=== PATIENT | female | born 1950 | race Caucasian/White ===

== ENCOUNTER → 2017-08-14 | Outpatient (CLI) | payer MEDICARE ==
--- NOTE | 2017-08-14 10:47 | MM ---
Reason for exam: follow-up at short interval from prior study. Last mammogram was performed 7 months ago. History: Patient is postmenopausal. Stereotactic core biopsy of the left breast, June 03, 2004. Core biopsy of the left breast. Benign excisional biopsy of the left breast. Took hormonal contraceptives for 8 years beginning at age 23. Took estrogen for 9 years beginning at age 42. Took progesterone for 9 years beginning at age 42. Physical Findings: Nurse did not find any significant physical abnormalities on exam. MG Diagnostic Mammo RT w CAD CC and MLO view(s) were taken of the right breast. Prior study comparison: January 25, 2017, bilateral MG 3d screening mammo w/cad. July 16, 2015, bilateral MG screening mammo w CAD. The breast tissue is heterogeneously dense. This may lower the sensitivity of mammography. There is no discrete abnormality. No significant new findings when compared with previous films. These results were verbally communicated with the patient and result sheet given to the patient on 08/14/17. ASSESSMENT: Benign, BI-RAD 2 RECOMMENDATION: Return to routine screening mammogram schedule for both breasts. Back on schedule.
== END | disposition home or self-care (01) ==
LOC: RADMAMWWP 10:12
PROVIDERS: ATTEND Family Medicine
DX: N63.10 Unspecified lump in the right breast, unspecified quadrant (principal)
CPT/HCPCS: 77065

== ENCOUNTER → 2018-03-19 | Outpatient (CLI) | payer MEDICARE ==
--- NOTE | 2018-03-22 08:51 | MM ---
Reason for exam: screening (asymptomatic). Last mammogram was performed 7 months ago. History: Patient is postmenopausal. Stereotactic core biopsy of the left breast, June 03, 2004. Core biopsy of the left breast. Benign excisional biopsy of the left breast. Took hormonal contraceptives for 8 years beginning at age 23. Took estrogen for 9 years beginning at age 42. Took progesterone for 9 years beginning at age 42. Physical Findings: A clinical breast exam by your physician is recommended on an annual basis and results should be correlated with mammographic findings. MG 3D Screening Mammo W/Cad Bilateral CC and MLO view(s) were taken. Prior study comparison: August 14, 2017, right breast MG diagnostic mammo RT w CAD. January 25, 2017, bilateral MG 3d screening mammo w/cad. The breast tissue is heterogeneously dense. This may lower the sensitivity of mammography. There is chronic nodularity in the left inferior left breast. No significant changes when compared with prior studies. ASSESSMENT: Negative, BI-RAD 1 RECOMMENDATION: Routine screening mammogram of both breasts in 1 year.
== END | disposition home or self-care (01) ==
LOC: RADMAMWWP 13:07
PROVIDERS: ATTEND Family Medicine
DX: Z12.31 Encounter for screening mammogram for malignant neoplasm of breast (principal)
CPT/HCPCS: 77063; 77067

== ENCOUNTER 2018-04-26 09:11 | Day surgery (SDC) | payer MEDICARE ==
[2018-04-25 08:54] VITALS: BMI 33.0
[~2018-04-26 09:11] MED LIST: LACTATED RINGERS 1,000 ML IV SCH
[2018-04-26 09:57] VITALS: RESP 16; TEMP 97.7
[2018-04-26] MEDS ORDERED: PROPOFOL 10 MG/ML 20 ML VIAL IV ONE (10:35)
--- NOTE | 2018-04-26 11:11 | P.PCN ---
Date of Procedure: 04/26/18 Procedure(s) Performed: BRIEF HISTORY: Patient is a 60-year-old pleasant female, scheduled for an elective colonoscopy as a part of evaluation of prior history of colon polyps. Her last colonoscopy was 5 years ago. PROCEDURE PERFORMED: Colonoscopy. PREOPERATIVE DIAGNOSIS: History Of colon polyps. IV sedation per Anesthesia. PROCEDURE: After informed consent was obtained, the patient, was brought into the endoscopy unit. IV sedation was administered by Anesthesia under continuous monitoring. Digital rectal examination was normal. Initially the Olympus CF-160 flexible video colonoscope was then inserted in the rectum, gradually advanced into the cecum without any difficulty. Careful examination was performed as the scope was gradually being withdrawn. Ileocecal valve and the appendiceal orifice were visualized and appeared normal. Prep was fair. Thorough Irrigation was performed using irrigation system.. Mucosa of the cecum, ascending colon, transverse colon, descending colon, sigmoid colon, and rectum appeared normal. Retroflexion was performed in the rectum and no lesions were seen. The patient tolerated the procedure well. IMPRESSION: Normal-appearing colon from rectum to cecum with no evidence of colitis or colorectal neoplasia. RECOMMENDATIONS: Findings of this examination were discussed with the patient as well as a family. She was advised to have a repeat surveillance colonoscopy in 5 years because of the prior history of colon polyps..
[2018-04-26 11:37] VITALS: BP 129/84; PULSE 66
== END 2018-04-26 11:45 | disposition home or self-care (01) ==
LOC: ORWHC2ENDO 09:11
PROVIDERS: ATTEND Internal Medicine Gastroenterology
DX: Z86.010 Personal history of colon polyps (principal); E78.5 Hyperlipidemia, unspecified; Z79.899 Other long term (current) drug therapy
CPT/HCPCS: 45378; J2704

== ENCOUNTER → 2019-05-01 | Outpatient (CLI) | payer MEDICARE ==
--- NOTE | 2019-05-02 13:57 | MM ---
Reason for exam: screening (asymptomatic). Last mammogram was performed 1 year and 1 month ago. History: Patient is postmenopausal. Stereotactic core biopsy of the left breast, June 03, 2004. Core biopsy of the left breast. Benign excisional biopsy of the left breast. Took hormonal contraceptives for 8 years beginning at age 23. Took estrogen for 9 years beginning at age 42. Took progesterone for 9 years beginning at age 42. Physical Findings: A clinical breast exam by your physician is recommended on an annual basis and results should be correlated with mammographic findings. MG 3D Screening Mammo W/Cad Bilateral CC and MLO view(s) were taken. Prior study comparison: March 19, 2018, bilateral MG 3d screening mammo w/cad. August 14, 2017, right breast MG diagnostic mammo RT w CAD. The breast tissue is heterogeneously dense. This may lower the sensitivity of mammography. Finding: There is a 16 mm high density, circumscribed mass with architectural distortion located 6 cm from the nipple in the lower inner quadrant of the left breast consistent with post operative changes. 5mm fat density 2o'clock left breast consistent with lipoma. No significant changes in finding since March 19, 2018 and August 14, 2017. ASSESSMENT: Benign, BI-RAD 2 RECOMMENDATION: Routine screening mammogram of both breasts in 1 year.
== END | disposition home or self-care (01) ==
LOC: RADMAMWWP 16:35
PROVIDERS: ATTEND Family Medicine
DX: Z12.31 Encounter for screening mammogram for malignant neoplasm of breast (principal)
CPT/HCPCS: 77063; 77067

== ENCOUNTER → 2019-05-06 | Outpatient (CLI) | payer MEDICARE ==
--- NOTE | 2019-05-07 07:38 | BD ---
EXAMINATION TYPE: Axial Bone Density DATE OF EXAM: 05/06/2019 COMPARISON: NONE CLINICAL HISTORY: OSTEOPENIA Height: 5 FT 4 3/4 IN Weight: 210 FRAX RISK QUESTIONS: Alcohol (3 or more units per day): NO Family History (Parent hip fracture): NO Glucocorticoids (More than 3mos): NO (Ex: prednisone, prednisolone, methylprednisolone, dexamethasone, and hydrocortisone). History of Fracture in Adulthood: YES Secondary Osteoporosis: 1. Type 1 Diabetes: NO 2. Hyperthyroidism: NO 3. Menopause before 45: YES 4. Malnutrition: NO 5. Chronic liver disease: NO Rheumatoid Arthritis: NO Current Tobacco Use: NO RISK FACTORS HISTORY OF: Active: YES Postmenopausal woman: AGE 39-40 Take estrogen and/or progesterone medications: TOOK HRT APPROX 5 YEARS RIGHT AFTER MENOPAUSE MEDICATIONS: Additional Medications: CHOLESTEROL MEDS Additional History: EXAM MEASUREMENTS: Bone mineral densitometry was performed using the [employer] System. Bone mineral density as measured about the Lumbar spine is: ----- L1-L4(G/cm2): 1.078 T Score Values are as follows: ----- L2: -0.8 ----- L3: -0.7 ----- L4: -0.6 ----- L1-L4: -0.8 PRV DONE IN DRS OFFICE Bone mineral density about the R hip (g/cm2): 0.797 Bone mineral density about the L hip (g/cm2): 0.783 T Score values are as follows: -----R Neck: -1.7 -----L Neck: -1.8 -----R Total: -1.5 -----L Total: -1.3 PREV DONE IN DRS OFFICE IMPRESSION: Osteopenia (T Score between -2.5 and -1). There is slightly increased risk of fracture and the patient may be considered for treatment. Re-Screen 2-5 years. NOTE: T-SCORE=SD OF THE YOUNG ADULT MEAN.
== END | disposition home or self-care (01) ==
LOC: RADBDWWP 15:32
PROVIDERS: ATTEND Family Medicine
DX: M85.88 Other specified disorders of bone density and structure, other site (principal)
CPT/HCPCS: 77080

== ENCOUNTER → 2020-06-29 | Outpatient (CLI) | payer MEDICARE ==
--- NOTE | 2020-06-30 13:43 | MM ---
Reason for exam: screening (asymptomatic). Last mammogram was performed 1 year and 2 months ago. History: Patient is postmenopausal. Stereotactic core biopsy of the left breast, June 03, 2004. Core biopsy of the left breast. Benign excisional biopsy of the left breast. Took hormonal contraceptives for 8 years beginning at age 23. Took estrogen for 9 years beginning at age 42. Took progesterone for 9 years beginning at age 42. Physical Findings: A clinical breast exam by your physician is recommended on an annual basis and results should be correlated with mammographic findings. MG 3D Screening Mammo W/Cad Bilateral CC and MLO view(s) were taken. Prior study comparison: May 01, 2019, bilateral MG 3d screening mammo w/cad. March 19, 2018, bilateral MG 3d screening mammo w/cad. The breast tissue is heterogeneously dense. This may lower the sensitivity of mammography. No significant changes when compared with prior studies. ASSESSMENT: Benign, BI-RAD 2 RECOMMENDATION: Routine screening mammogram of both breasts in 1 year.
== END | disposition home or self-care (01) ==
LOC: RADMAMWWP 09:38
PROVIDERS: ATTEND Family Medicine
DX: Z12.31 Encounter for screening mammogram for malignant neoplasm of breast (principal); Z78.0 Asymptomatic menopausal state
CPT/HCPCS: 77063; 77067

== ENCOUNTER → 2021-09-07 | Outpatient (CLI) | payer MEDICARE ==
--- NOTE | 2021-09-07 12:14 | BD ---
EXAMINATION TYPE: Axial Bone Density DATE OF EXAM: 09/07/2021 COMPARISON: NONE CLINICAL HISTORY: 71 years year old Female. ICD-10 CODE: M8580 DISORDER OF BONE Height: 5 FT 5 IN Weight: 217 FRAX RISK QUESTIONS: Alcohol (3 or more units per day): NO Family History (Parent hip fracture): NO Glucocorticoids (More than 3mos): NO (Ex: prednisone, prednisolone, methylprednisolone, dexamethasone, and hydrocortisone). History of Fracture in Adulthood: YES Secondary Osteoporosis: 1. Type 1 Diabetes: NO 2. Hyperthyroidism: NO 3. Menopause before 45: YES 4. Malnutrition: NO 5. Chronic liver disease: NO Rheumatoid Arthritis: NO Current Tobacco Use: NO RISK FACTORS HISTORY OF: Surgery to Spine/Hip(right/left)/Wrist (right/left): NO Family History of Osteoporosis: NO Active: YES Diet low in dairy products/other sources of calcium: NO Postmenopausal woman: YES Take estrogen and/or progesterone medications: NO Lost more than 2 inches in height since high school: NO Frequent falls: NO Poor Health: GOOD Hyperparathyroidism: NO Adrenal Insufficiency: NO MEDICATIONS: Additional Medications: CHOLESTEROL MEDS, BLOOD PRESSURE MEDS Additional History: EXAM MEASUREMENTS: Bone mineral densitometry was performed using the [employer] System. Bone mineral density as measured about the Lumbar spine is: ----- L1-L4(G/cm2): 1.072 T Score Values are as follows: ----- L1: -1.7 ----- L2: -1.6 ----- L3: -1.0 ----- L4: 0.2 ----- L1-L4: -0.9 PREV UNAVAILABLE Bone mineral density about the R hip (g/cm2): 0.804 Bone mineral density about the L hip (g/cm2): 0.749 T Score values are as follows: -----R Neck: -1.7 -----L Neck: -2.1 -----R Total: -1.6 -----L Total: -1.6 PREV UNAVAILABLE FRAX%s: The graph provided illustrates a 18.1 % chance for a major osteoporotic fx and a 3.6 % chance for the hips probability for fx in 10 years time. IMPRESSION: Osteopenia (T Score between -2.5 and -1). There is slightly increased risk of fracture and the patient may be considered for treatment. Re-Screen 2-5 years. NOTE: T-SCORE=SD OF THE YOUNG ADULT MEAN.
--- NOTE | 2021-09-07 15:23 | MM ---
Reason for Exam: Screening (asymptomatic). Last mammogram was performed 1 year(s) and 2 month(s) ago. Patient History: Menarche at age 12. First Full-Term at age 29. Postmenopausal. Estrogen for 9 years from age 42 until age 51. Progesterone for 9 years from age 42 until age 51. Hormonal Contraceptives for 8 years from age 23 until age 33. Core Biopsy on the Left side. Benign Excisional Biopsy on the left side. 06/03/2004, Stereotactic Core Biopsy on the Left side. Risk Values: Day 5 year model risk: 2.9%. NCI Lifetime model risk: 7.9%. Prior Study Comparison: 03/19/2018 Bilateral Screening Mammogram, [facility]. 05/01/2019 Bilateral Screening Mammogram, [facility]. 06/29/2020 Bilateral Screening Mammogram, [facility]. Tissue Density: The breast tissue is heterogeneously dense. This may lower the sensitivity of mammography. Findings: Analyzed By CAD. There is no suspicious group of microcalcifications or new suspicious mass in either breast. Overall Assessment: Benign, BI-RAD 2 Management: Screening Mammogram of both breasts in 1 year. A clinical breast exam by your physician is recommended on an annual basis and results should be correlated with mammographic findings. Electronically signed and approved by: Giovanni Barcenas M.D. Radiologis
== END | disposition home or self-care (01) ==
LOC: RADMAMWWP 07:05
PROVIDERS: ATTEND Family Medicine
DX: Z12.31 Encounter for screening mammogram for malignant neoplasm of breast (principal); M85.80 Other specified disorders of bone density and structure, unspecified site
CPT/HCPCS: 77063; 77067; 77080

== ENCOUNTER → 2022-10-13 | Outpatient (CLI) | payer MEDICARE ==
--- NOTE | 2022-10-16 11:29 | MM ---
EXAM: MG 3D screening mammo w/cad DATE OF EXAM: 10/13/2022 9:26 AM COMPARISON STUDIES: 05/01/2019 Bilateral Screening Mammogram, [facility]. 06/29/2020 Bilateral Screening Mammogram, [facility]. 09/07/2021 Bilateral MG 3D screening mammo w/cad, [facility]. PATIENT HISTORY: Female, 72 years old with history of Z12.31 SCREENING MAMMO; , Menarche at age 12. First Full-Term at age 29. Postmenopausal. Estrogen for 9 years from age 42 until age 51. Progesterone for 9 years from age 42 until age 51. Hormonal Contraceptives for 8 years from age 23 until age 33. Core Biopsy on the Left side. Benign Excisional Biopsy on the left side. 06/03/2004, Stereotactic Core Biopsy on the Left side. , RISK CALCULATION: Day 5 year model risk: 2.9%. NCI Lifetime model risk: 7.5%. TISSUE DENSITY: Heterogeneously dense FINDINGS: There is no suspicious group of microcalcifications or new suspicious mass in either breast. ASSESSMENT: 1 - Negative RECOMMENDATION: 1. Screening Mammogram Bilateral in 1 Year . COMMENTS: [facility] will attempt to contact patient to return for supplemental views and ultrasound if indicated. Patient should continue monthly self-breast exams. A clinical breast exam by your physician is recommended on an annual basis. This exam should not preclude additional follow-up of suspicious palpable abnormalities. Note on Day scores and lifetime risk: 1. A Day score greater than 3% is considered moderate risk. If this is the case, consider specialist referral to assess eligibility for a risk reducing agent. 2. If overall lifetime risk for the development of breast cancer is 20% or higher, the patient may qualify for future screening with alternating mammogram and breast MRI. JERRY
== END | disposition home or self-care (01) ==
LOC: RADMAMWWP 08:05
PROVIDERS: ATTEND Family Medicine
DX: Z12.31 Encounter for screening mammogram for malignant neoplasm of breast (principal); Z78.0 Asymptomatic menopausal state
CPT/HCPCS: 77063; 77067

== ENCOUNTER 2023-05-08 10:47 | Day surgery (SDC) | payer MEDICARE ==
[2023-05-08] MEDS: LACTATED RINGERS 1,000 ML IV SCH (11:47)
[2023-05-08 11:56] VITALS: RESP 16; TEMP 97
[2023-05-08] MEDS ORDERED: LIDOCAINE 1% INJ 10MG/ML (20 ML MDV) ONE (12:26)
[2023-05-08] MEDS ORDERED: PROPOFOL 10 MG/ML 20 ML VIAL IV ONE (12:26)
--- NOTE | 2023-05-08 12:45 | P.PCN ---
Date of Procedure: 05/08/23 Procedure(s) Performed: BRIEF HISTORY: Patient is a 72-year-old pleasant white female scheduled for an elective colonoscopy as a part of the lesion of prior history of colon polyps. Last colonoscopy was 5 years ago. PROCEDURE PERFORMED: Colonoscopy. PREOPERATIVE DIAGNOSIS: History of colon polyps. IV sedation per Anesthesia. PROCEDURE: After informed consent was obtained, the patient, was brought into the endoscopy unit. IV sedation was administered by Anesthesia under continuous monitoring. Digital rectal examination was normal. Initially the Olympus CF-160 flexible video colonoscope was then inserted in the rectum, gradually advanced into the cecum without any difficulty. Careful examination was performed as the scope was gradually being withdrawn. Ileocecal valve and the appendiceal orifice were visualized and appeared normal. Prep was excellent. Mucosa of the cecum, ascending colon, transverse colon, descending colon, sigmoid colon, and rectum appeared normal. Retroflexion was performed in the rectum and no lesions were seen. The patient tolerated the procedure well. IMPRESSION: Normal-appearing colon from rectum to cecum with no evidence of colorectal neoplasia . RECOMMENDATIONS: Findings of this examination were discussed with the patient as well as a family. She was advised to have a repeat screening colonoscopy at age 18.
[2023-05-08 13:07] VITALS: BP 130/68; PULSE 63
== END 2023-05-08 13:24 | disposition home or self-care (01) ==
LOC: ORWHC2ENDO 10:47
PROVIDERS: ATTEND Internal Medicine Gastroenterology
DX: Z12.11 Encounter for screening for malignant neoplasm of colon (principal); E78.5 Hyperlipidemia, unspecified; Z86.010 Personal history of colon polyps; Z79.899 Other long term (current) drug therapy
CPT/HCPCS: J2001; J2704; G0105

== ENCOUNTER → 2023-12-27 | Outpatient (CLI) | payer MEDICARE ==
--- NOTE | 2023-12-29 18:09 | BD ---
EXAMINATION TYPE: Axial Bone Density DATE OF EXAM: 12/27/2023 CLINICAL HISTORY: 73 years old Female. ICD-10 CODE: Z78.0 ASYMPTOMATIC MENOPAUSAL STA , Additional History: Height: 64.7 Weight: 208 FRAX RISK QUESTIONS: History of Fracture in Adulthood: yes Secondary Osteoporosis: 3. Menopause before 45: yes RISK FACTORS HISTORY OF: MEDICATIONS: EXAM MEASUREMENTS: Bone mineral densitometry was performed using the [employer] System. Bone mineral density as measured about the Lumbar spine is: ----- L1-L4(G/cm2): 1.170 T Score Values are as follows: ----- L1: -1.6 ----- L2: -1.1 ----- L3: 0.2 ----- L4: 1.6 ----- L1-L4: -0.1 Z Score Values are as follows: ----- L1: -0.9 ----- L2: -0.4 ----- L3: 0.9 ----- L4: 2.3 ----- L1-L4: 0.7 Bone mineral density has: Increased 9.1% since study of: 09-07-21 Bone mineral density about the R hip (g/cm2): 0.861 Bone mineral density about the L hip (g/cm2): 0.875 T Score values are as follows: -----R Neck: -1.2 -----L Neck: -1.5 -----R Total: -1.2 -----L Total: -1.1 Z Score values are as follows: -----R Neck: 0.0 -----L Neck: -0.3 -----R Total: -0.2 -----L Total: -0.1 Bone mineral density has: Increased 7.6% since study of: 09-07-21 FRAX%s: The graph provided illustrates a 15.8% chance for a major osteoporotic fx and a 2.6% chance f or the hips probability for fx in 10 years time. IMPRESSION: Osteopenia (T Score between -2.5 and -1). There is slightly increased risk of fracture and the patient may be considered for treatment. Re-Screen 2-5 years. NOTE: T-SCORE=SD OF THE YOUNG ADULT MEAN. [facility], , 12/29/2023 6:07 PM
--- NOTE | 2024-01-03 12:17 | MM ---
Reason for Exam: Screening (asymptomatic). Last mammogram was performed 1 year(s) and 3 month(s) ago. Patient History: Menarche at age 12. First Full-Term at age 29. Postmenopausal. Estrogen for 9 years from age 42 until age 51. Progesterone for 9 years from age 42 until age 51. Hormonal Contraceptives for 8 years from age 23 until age 33. Core Biopsy on the Left side. Benign Excisional Biopsy on the left side. 06/03/2004, Stereotactic Core Biopsy on the Left side. Risk Values: Day 5 year model risk: 2.9%. NCI Lifetime model risk: 7.1%. Prior Study Comparison: 08/14/2017 Right Diagnostic Mammogram, [facility]. 03/19/2018 Bilateral Screening Mammogram, [facility]. 05/01/2019 Bilateral Screening Mammogram, [facility]. 06/29/2020 Bilateral Screening Mammogram, [facility]. 09/07/2021 Bilateral MG 3D screening mammo w/cad, [facility]. 10/13/2022 Bilateral MG 3D screening mammo w/cad, [facility]. Tissue Density: The breasts are heterogeneously dense, which may obscure small masses. Findings: Analyzed By CAD. Right breast: There is no suspicious group of microcalcifications or new suspicious mass. Left breast: There is no suspicious group of microcalcifications or new suspicious mass. Overall Assessment: Negative, BI-RAD 1 Management: Screening Mammogram of both breasts in [address] [facility] will attempt to contact patient to return for supplemental views and ultrasound if indicated. Patient should continue monthly self-breast exams. A clinical breast exam by your physician is recommended on an annual basis. This exam should not preclude additional follow-up of suspicious palpable abnormalities. Note on Day scores and lifetime risk: 1. A Day score greater than 3% is considered moderate risk. If this is the case, consider specialist referral to assess eligibility for a risk reducing agent. 2. If overall lifetime risk for the development of breast cancer is 20% or higher, the patient may qualify for future screening with alternating mammogram and breast MRI. [facility], , 01/03/2024 12:12 PM. Electronically signed and approved by: Sushil Wells DO
== END | disposition home or self-care (01) ==
LOC: RADBDWWP 09:51
PROVIDERS: ATTEND Family Medicine
DX: Z12.31 Encounter for screening mammogram for malignant neoplasm of breast (principal); M85.89 Other specified disorders of bone density and structure, multiple sites; R92.333 Mammographic heterogeneous density, bilateral breasts; Z78.0 Asymptomatic menopausal state
CPT/HCPCS: 77063; 77067; 77080

== ENCOUNTER → 2024-01-24 | Outpatient (CLI) | payer MEDICARE ==
[2024-01-24 16:00] LABS: Basophils # (A) 0.03 X 10*3/uL (0.00-0.10); Basophils % (A) 0.6 %; Eosinophils # (A) 0.14 X 10*3/uL (0.04-0.35); Eosinophils % (A) 2.9 %; HCT 37.6 % (37.2-46.3); HGB 12.8 g/dL (12.0-15.0); Lymphocytes % (A) 37.7 %; MCH 31.5 pg (27.0-32.0); MCV 92.6 FL (80.0-97.0); Mean Platelet Volume 11.7 FL (9.5-12.2); Monocytes # (A) 0.34 X 10*3/uL (0.20-1.00); Monocytes % (A) 7.1 %; NRBC Per 100 WBC 0 X 10*3/uL (0.00-0.01); Neutrophils # (A) 2.45 X 10*3/uL (1.80-7.70); Neutrophils % (A) 51.5 %; Platelet Count 204 X 10*3/uL (140-440); RBC 4.06 X 10*6/uL (4.10-5.20); RDW 13.2 % (11.5-14.5); WBC 4.77 X 10*3/uL (4.50-10.00)
[2024-01-24 16:06] LABS: Anion Gap 8.1 mmol/L (4.00-12.00); Carbon Dioxide 25.9 mmol/L (21.6-31.8); Potassium 3.9 mmol/L (3.5-5.5)
== END | disposition home or self-care (01) ==
LOC: LABPAT 10:11
PROVIDERS: ATTEND Orthopaedic Surgery
DX: Z01.818 Encounter for other preprocedural examination (principal); M23.92 Unspecified internal derangement of left knee
CPT/HCPCS: 80051; 85025; 93005

== ENCOUNTER 2024-02-07 10:55 | Day surgery (SDC) | payer MEDICARE ==
--- NOTE | 2024-02-07 08:34 | HP ---
HISTORY AND PHYSICAL DATE OF SURGERY: 02/07/2024. HISTORY OF PRESENT ILLNESS: Monisha Lepe is a 73-year-old patient, seen with progressive left knee pain. We discussed options regarding treatment. She elected to proceed with left knee arthroscopy. Consents obtained. PAST MEDICAL HISTORY: Hyperlipidemia, hypertension. PAST SURGICAL HISTORY: Ankle surgery, tubal ligation, D and C, and tonsillectomy. DAILY MEDICATIONS: 1. Rosuvastatin. 2. Advil. ALLERGIES: None. SOCIAL HISTORY: She denies tobacco use. PHYSICAL EVALUATION OF THE LEFT KNEE: Range of motion is -2/4 to 120 degrees. Mild effusion. Tenderness along the medial and lateral joint lines. Positive medial Yajaira's. Positive lateral Yajaira's. Ligaments stable. Hip rotation without pain. Distal neurovascular exam is intact. IMAGING STUDIES: Left knee radiographs revealed mild osteoarthritis. MRI left knee revealed a complex medial meniscal tear, lateral meniscal tear, Cedeno cyst, and osteoarthritic changes. IMPRESSION: 1. Internal derangement of left knee with medial and lateral meniscal tears. 2. Left knee osteoarthritis. 3. Rtd-[id number] diabetes. 4. Hyperlipidemia. PLAN: Left knee arthroscopy with partial medial/lateral meniscectomy and debridement. MMODL / IJN: [id number] /
[2024-02-07] MEDS ORDERED: fentaNYL (PF) 50 MCG/ML 2 ML AMP IVP PRN (11:18)
[2024-02-07] MEDS ORDERED: HYDROmorphone 0.5 MG/0.5 ML SYRINGE IVP PRN (11:18)
[2024-02-07] MEDS ORDERED: MIDAZOLAM 2 MG/2 ML VIAL IV PRN (11:18)
[2024-02-07] MEDS ORDERED: LIDOCAINE 1% (10MG/ML) FOR IV START INTRADERMA PRN (11:18)
[2024-02-07] MEDS: LACTATED RINGERS 1,000 ML IV SCH (11:49)
[2024-02-07] MEDS: ONDANSETRON 4 MG/2 ML VIAL IVP ONE (11:50)
[2024-02-07] MEDS: DEXAMETHASONE SOD PHOSPHATE 4 MG/ML 1 ML VIAL IV ONE (11:50)
[2024-02-07 11:57] LABS: Glucose,Whole Blood 108 mg/dL (70-110)
[2024-02-07] MEDS: IV FLUID CONTINUATION 1,000 ML IV ONE (12:03)
[2024-02-07] MEDS: BUPIVACAINE (PF) 0.25% 30 ML VIAL SQ ONE ×2 (12:43→13:26)
[2024-02-07] MEDS ORDERED: LIDOCAINE 1% INJ 10MG/ML (20 ML MDV) ONE (12:50)
[2024-02-07] MEDS ORDERED: fentaNYL (PF) 50 MCG/ML 2 ML AMP ONE (12:50)
[2024-02-07] MEDS ORDERED: PROPOFOL 10 MG/ML 20 ML VIAL IV ONE (12:50)
[2024-02-07 13:39] VITALS: TEMP 97
--- NOTE | 2024-02-07 13:41 | P.OP ---
Date of Procedure: 02/07/24 Preoperative Diagnosis: Internal derangement left knee Postoperative Diagnosis: 1. Tear medial and lateral meniscus left knee 2. Grade IV chondromalacia medial femoral condyle left knee 3. Reactive synovitis medial, lateral and suprapatellar compartments left knee 4. Medial plica left knee Procedure(s) Performed: 1. Arthroscopic partial medial and lateral meniscectomy left knee 2. Arthroscopic microfracture medial femoral condyle left knee 3. Arthroscopic partial synovectomy medial, lateral and suprapatellar compartments left knee 4. Arthroscopic resection medial plica left knee Anesthesia: FANGA, local Surgeon: Noel Cam Estimated Blood Loss (ml): 8 Pathology: none sent Condition: stable Disposition: PACU Indications for Procedure: 73-year-old patient seen with progressive left knee pain. After having treatment options discussed, she elected to proceed with arthroscopy. Operative Findings: See description of procedure Description of Procedure: Patient was taken to the operative suite. Patient underwent a general anesthetic by the department of anesthesia. Patient was given preoperative antibiotics. The left lower extremity was placed in a well-padded arthroscopic leg harris. The left leg was prepped and draped in the normal sterile orthopedic fashion. A lateral parapatellar and suprapatellar incision was made. Trochars were inserted. Arthroscopy was initiated. Suprapatellar pouch revealed diffuse thick reactive synovitis. The patellofemoral joint appeared to articulate congruently. There was grade I/II chondromalacia patellofemoral joint without significant tears. The scope was guided into the medial gutter. There was a plica which did seem to impinge on the medial femoral condyle with range of motion. The scope was then guided into the medial compartment. A medial parapatellar incision was made. Trocar inserted followed by probe. There was a complex tear involving the posterior horn and mid bodies of the medial meniscus. There was an area of grade III/IV chondromalacia medial femoral condyle with some large osteochondral flap tears present. There was thick reactive synovitis anteriorly. I performed a partial medial meniscectomy getting down to stable meniscal tissue. I performed a chondroplasty of the medial femoral condyle getting down to stable osteochondral tissue. I performed a partial synovectomy decompressing the thick reactive synovitis anteriorly. I did note an area of grade IV chondromalacia involving the weightbearing surface of the medial femoral condyle measuring just under 1 centimeter. I introduced a microfracture awl and performed a microfracture to that area of exposed bone penetrating the bone with resultant bleeding at the microfracture site. The residual meniscus was probed and was found to be stable. The residual os teochondral surface was stable. There was good decompression of the synovitis. Scope and probe were then guided into the intercondylar notch. Cruciates were identified, probed and found to be stable. The scope and probe were then guided into lateral compartment. There was a complex tear involving the mid body and anterior horns of the lateral meniscus. There were grade II/III chondromalacia changes lateral femoral condyle with some osteochondral flap tears. There was some thick reactive synovitis anteriorly. I performed a partial lateral meniscectomy getting down to stable meniscal tissue. I performed a chondroplasty of the lateral femoral condyle getting down to stable osteochondral tissue. I performed a partial synovectomy decompressing the thick reactive synovitis anteriorly. The residual meniscus was probed and was found to be stable. The residual osteochondral surface was stable. There was good decompression of the synovitis. The scope was in guided back into the win prapatellar compartment. I introduced a motorized shaver into the suprapatellar compartment. I debrided some piecemeal fragments of meniscus that I encountered. I performed a partial synovectomy. The shaver was now removed. There appeared to be good decompression of the synovitis. I took 1 more look around the entire knee, no residual debris. Instruments were now removed from the joint. The joint was infiltrated with .25% Marcaine. Steri-Strips were applied to the portal sites. Sterile dressings were applied. The patient was placed into a COOKIE hose. No tourniquet was utilized. The patient was awakened, transferred to a bed and taken to recovery stable satisfactory condition.
[2024-02-07 13:42] LABS: Glucose,Whole Blood 150 mg/dL (70-110)
[2024-02-07 14:21] VITALS: RESP 16
[2024-02-07] MEDS: HYDROcodone/APAP 5-325MG 1 EACH TAB PO STA (14:30)
[2024-02-07 14:41] VITALS: BP 106/68; PULSE 62
== END 2024-02-07 14:49 | disposition home or self-care (01) ==
LOC: OR 10:55
PROVIDERS: ATTEND Orthopaedic Surgery
DX: S83.282A Other tear of lateral meniscus, current injury, left knee, initial encounter (principal); S83.242A Other tear of medial meniscus, current injury, left knee, initial encounter; M17.12 Unilateral primary osteoarthritis, left knee; M22.42 Chondromalacia patellae, left knee; I10 Essential (primary) hypertension; E78.5 Hyperlipidemia, unspecified; E11.9 Type 2 diabetes mellitus without complications; M67.52 Plica syndrome, left knee; M65.962 Unspecified synovitis and tenosynovitis, left lower leg; Z79.84 Long term (current) use of oral hypoglycemic drugs; Z98.51 Tubal ligation status; Z79.899 Other long term (current) drug therapy; Z90.89 Acquired absence of other organs; X58.XXXA Exposure to other specified factors, initial encounter
CPT/HCPCS: 29879; 29880; J1100; J0690; J2405; J2003; J3010; J2704; J0665